=== PATIENT | female | born 1980 | race Two or more races ===

== ENCOUNTER 2024-11-24 10:42 | Emergency (ER) | payer BC, OTHER ==
[~2024-11-24] VITALS: Ht 149.9 cm; Wt 81.6 kg
[2024-11-24] MEDS ORDERED: LISI-782 PO (10:56)
[2024-11-24 12:25] LABS: PLATELET COUNT (AUTO) 222 K/uL (179-408); RED BLOOD CELL COUNT(AUTO) 5.05 MIL/uL (3.63-4.92); RED CELL DISTRIBUTION WIDTH 13.9 % (12.3-17.7); WHITE BLOOD COUNT (AUTO) 4.2 K/uL (3.8-11.8)
[2024-11-24 12:34] LABS: CREATININE 0.7 mg/dL (0.6-1.3); SODIUM SERUM 138 mmol/L (136-145); UREA NITROGEN, BLOOD 15 mg/dL (7-18)
[2024-11-24 12:39] LABS: ASPARTATE AMINOTRANSFERASE 13 U/L (15-37); TOTAL PROTEIN, SERUM 7.7 g/dL (6.4-8.2)
[2024-11-24 13:04] VITALS: BP 125/74; TEMP 97.9; O2SAT 98
== END 2024-11-24 13:05 | disposition home or self-care (01) ==
LOC: ER 10:42
DX: R07.9 Chest pain, unspecified (principal); Z79.899 Other long term (current) drug therapy; Z88.0 Allergy status to penicillin; Z86.79 Personal history of other diseases of the circulatory system
CPT/HCPCS: 36415; 84484; 85025; 85730; A4606; A4663